=== PATIENT | male | born 2000 | race African-American/Black ===

== ENCOUNTER 2021-06-18 20:00 | Emergency (ER) | payer MEDICAID ==
[~2021-06-18] VITALS: Ht 190.5 cm; Wt 69.0 kg
[2021-06-19] MEDS ORDERED: KETOROLAC 60MG/2ML VIAL IM STA (02:49)
[2021-06-19] MEDS ORDERED: NAPR-681 PO (04:40)
[2021-06-19] MEDS ORDERED: TRAM50TA PO (04:40)
[2021-06-19 05:07] VITALS: BP 116/72
== END 2021-06-19 05:08 | disposition home or self-care (01) ==
LOC: ER 20:00
DX: M25.571 Pain in right ankle and joints of right foot (principal); S92.901D Unspecified fracture of right foot, subsequent encounter for fracture with routine healing; S82.891D Other fracture of right lower leg, subsequent encounter for closed fracture with routine healing; F32.9 Major depressive disorder, single episode, unspecified; X58.XXXD Exposure to other specified factors, subsequent encounter; Z91.19 Patient's noncompliance with other medical treatment and regimen; Z98.890 Other specified postprocedural states
CPT/HCPCS: 73610; 96372; 99283; J1885

== ENCOUNTER 2021-06-19 13:41 | Emergency (ER) | payer MEDICAID ==
[~2021-06-19] VITALS: Ht 190.5 cm; Wt 54.0 kg
[~2021-06-19 13:41] MED LIST: NAPR-681 PO; TRAM50TA PO
[2021-06-19 13:45] VITALS: BP 117/69
== END 2021-06-19 13:56 | disposition home or self-care (01) ==
LOC: ER 13:41
DX: T16.1XXA Foreign body in right ear, initial encounter (principal); F32.9 Major depressive disorder, single episode, unspecified; X58.XXXA Exposure to other specified factors, initial encounter; Y93.9 Activity, unspecified; Y92.9 Unspecified place or not applicable
CPT/HCPCS: 99281